=== PATIENT | female | born 1955 | race Caucasian/White ===

== ENCOUNTER 2018-02-02 07:34 | Day surgery (SDC) | payer OTHER ==
[~2018-02-02 07:34] MED LIST: Acetaminophen/HYDROcodone 325-5 MG Tab PO PRN; Lactated Ringers 1,000 ML IV SCH; Sodium Chloride 0.9% 10 ML Syringe FLUSH PRN
[2018-02-02] MEDS ORDERED: ceFAZolin 1 GM in Sodium Chloride 0.9% 50 ML IV ONE (09:00)
[2018-02-02] MEDS ORDERED: ceFAZolin 1 GM in Sodium Chloride 0.9% 100 ML IV SCH ×4 (09:00)
[2018-02-02] MEDS ORDERED: Midazolam 1 MG/ML 2 ML SDV ONE (09:10)
[2018-02-02] MEDS ORDERED: fentaNYL 100 MCG/2 ML SDV ONE (09:10)
[2018-02-02] MEDS ORDERED: Bupivacaine 0.5% 10 ML SDV ONE (09:10)
[2018-02-02] MEDS ORDERED: Propofol 200 MG/20 ML SDV ONE (09:10)
--- NOTE | 2018-02-02 11:37 | OR ---
DATE OF OPERATION: PREOPERATIVE DIAGNOSIS: Right carpal tunnel syndrome. POSTOPERATIVE DIAGNOSIS: Right carpal tunnel syndrome. PROCEDURE: Right carpal tunnel release. ANESTHESIA: Local MAC. TYPEWRITER TESTER: Segundo Hui RN. SPECIMENS: None. DRAINS: None. ESTIMATED BLOOD LOSS: Minimal. COMPLICATIONS: None apparent. DESCRIPTION OF PROCEDURE: After informed consent was obtained, the patient was brought to the operating room, where monitored anesthesia care was provided uneventfully along with local anesthesia. The right upper extremity was prepped and draped sterilely. A time-out was held. Antibiotics were confirmed. The limb was exsanguinated and the tourniquet inflated. An incision was made in line with the radial border of the ring finger from a line starting at the Lambert cardinal line to the volar wrist crease. We dissected sharpy through the skin, subcutaneous tissue, and palmar aponeurosis down onto the transverse carpal ligament. Transverse carpal ligament was released in its entirety along with the distal aspect of the volar antebrachial fascia utilizing tenotomies. We inspected the nerve and motor branch which were intact and normal in appearance. We copiously irrigated and closed with 4-0 nylon. Sterile dressings were applied, and the patient was brought to the recovery room in stable condition having tolerated the procedure well with no apparent complications. PREETHI/TACOS /[id number]
== END 2018-02-02 11:29 | disposition home or self-care (01) ==
LOC: LB.SDS 07:34
PROVIDERS: ATTEND Orthopaedic Surgery
DX: G56.03 Carpal tunnel syndrome, bilateral upper limbs (principal); I10 Essential (primary) hypertension; E03.9 Hypothyroidism, unspecified; E78.2 Mixed hyperlipidemia; K58.9 Irritable bowel syndrome, unspecified; Z79.899 Other long term (current) drug therapy
CPT/HCPCS: J2250; J2704; J3010; J3490

== ENCOUNTER 2023-08-14 09:45 | Day surgery (SDC) | payer MEDICARE ==
[~2023-08-14 09:45] MED LIST changes: -Acetaminophen/HYDROcodone 325-5 MG Tab PO PRN; -Lactated Ringers 1,000 ML IV SCH; +Metoclopramide 10 MG/2 ML SDV IV PRN; -Sodium Chloride 0.9% 10 ML Syringe FLUSH PRN
[2023-08-14] MEDS: Sodium Chloride 0.9% 1,000 ML IV SCH (10:09)
[2023-08-14] MEDS ORDERED: Propofol 1,000 MG/100 ML SDV ONE (13:00)
== END 2023-08-14 14:00 | disposition home or self-care (01) ==
LOC: LB.SDS 09:45
PROVIDERS: ATTEND Surgery
DX: Z12.11 Encounter for screening for malignant neoplasm of colon (principal); R19.5 Other fecal abnormalities; I10 Essential (primary) hypertension; E03.9 Hypothyroidism, unspecified
CPT/HCPCS: J2704; J7030